=== PATIENT | female | born 1960 | race Two or more races ===

== ENCOUNTER 2018-02-04 10:49 | Outpatient (CLI) | payer OTHER | END 2018-02-04 10:54 | disposition home or self-care (01) | LOC: SONOGRAMA 10:49 | DX: E04.1 Nontoxic single thyroid nodule (principal) ==

== ENCOUNTER 2020-05-07 10:19 | Outpatient (CLI) | payer OTHER | END 2020-05-07 10:36 | disposition home or self-care (01) | LOC: SONOGRAMA 10:19 | PROVIDERS: ATTEND Pathology Anatomic Pathology | DX: D34 Benign neoplasm of thyroid gland (principal); E04.2 Nontoxic multinodular goiter; E04.8 Other specified nontoxic goiter ==